=== PATIENT | male | born 1950 | race Caucasian/White ===

== ENCOUNTER → 2016-05-10 | Outpatient (CLI) | payer BC ==
[~2016-05-10] MED LIST: ASPCH81X PO; MULT-506 PO
== END | disposition home or self-care (01) ==
LOC: C.LABBC 08:24
PROVIDERS: ATTEND Family Medicine
DX: E78.5 Hyperlipidemia, unspecified (principal); Z51.81 Encounter for therapeutic drug level monitoring; Z79.899 Other long term (current) drug therapy; Z11.59 Encounter for screening for other viral diseases

== ENCOUNTER → 2016-05-12 | Outpatient (CLI) | payer BC ==
[2016-05-12 10:00] LABS: CHOLESTEROL/HDL RATIO 2.7
== END | disposition home or self-care (01) ==
LOC: C.LAB1850 06:59
PROVIDERS: ATTEND Family Medicine
DX: E78.5 Hyperlipidemia, unspecified (principal); Z11.59 Encounter for screening for other viral diseases; Z51.81 Encounter for therapeutic drug level monitoring; Z79.899 Other long term (current) drug therapy

== ENCOUNTER 2023-09-15 11:48 | Observation (INO) ==
--- NOTE | 2023-09-15 11:54 | History & Physical Report ---
Date of Service September 15, 2023 Assessment & Plan (1) Near syncope: (2) AVB (atrioventricular block): Plan 1. Near syncope: It is now evident that his near syncope is due to transient AV block. There is no reversible cause that we have identified and we will implant a pacemaker. 2. AV block: He has a recent history of first-degree AV block and bifascicular block (so-called trifascicular block) which has a high risk of going on to complete heart block. Recordings have demonstrated transient AV block associated with symptoms. With a 6-second pause and symptoms and no reversible cause he does require a pacemaker. We will attempt to place a left bundle center lead consultant in order to help improve intraventricular conduction. 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 He has always felt that he had a slow heart rate but had been asymptomatic and did not have conduction abnormalities to his knowledge although I do not know when his prior electrocardiogram was. An electrocardiogram in May 07, 2023 showed sinus bradycardia with first-degree AV block and right bundle branch block. On his electrocardiogram September 07, 2023 he had the same findings. With his lightheadedness and conduction abnormalities on electrocardiography we did arrange an event recorder for him to wear. We received an alert about his event recorder on September 11, 2023. He was taking a shower and he felt very lightheadedness and presyncopal and had to sit down, although he did not pass out. He was wearing the monitor at the time (it was scheduled from September 10, 2023 through October 09, 2023) and this showed a period o f complete heart block which lasted for about 10 seconds with several escape beats but a pause of about 6 seconds before his escape rhythm occurred. He is on no medications to cause this. I therefore discussed pacemaker implantation with him but wanted to get an echocardiogram prior to determine the type of device. An echocardiogram done on September 14, 2023 is not formally read as yet but showed a mildly decreased left ventricular ejection fraction but not to the point where we would consider biventricular pacing or ICD implantation. Hopefully with left bundle branch pacing we will be able to improve his conducted complex and perhaps improve his left ventricular function. He arrives today for his pacemaker with no change in his symptoms. I reviewed the indications, procedure, risks and alternatives with the patient and his , and answered all questions. They understands and agree to the procedure. Consent obtained. I also reviewed the risks and use of sedation, they understand and consent obtained. Allergies Allergy/AdvReac Type Severity Reaction Status Date / Time No Known Allergies Allergy Verified 09/15/23 12:25 Home Medications Medication Instructions Recorded Confirmed Type multivitamin 1 tab PO DAILY 03/14/19 09/15/23 History vit C 250 mg-vit E 200 unit-zinc 1 cap PO BID 04/20/23 09/15/23 History ox 12.5 [id number]-zeax capsule (ICaps AREDS2) atorvastatin 10 mg tablet 10 mg PO PM 09/07/23 09/15/23 History Past Med/Surg History Problem List (Updated 09/15/23 @ 13:19 by Fuad Melendez MD) AVB (atrioventricular block) Headache (Acute) First degree heart block (Acute) Dizziness (Acute) New onset atrial fibrillation Elevated troponin Non-ST elevation NE (NSTEMI) (Acute) Near syncope (Acute) Neck pain on left side Conjunctival hemorrhage Near syncope Bifascicular block Sensorineural hearing loss of both ears (Chronic) Abnormal WBC count Overweight (BMI 25.0-29.9) Dyslipidemia Surgical History H/O colonoscopy next 06/12/2024 History of tonsillectomy History of tooth extraction Family History Mother Congestive heart failure Father Diabetes Grandmother (Maternal) Colorectal cancer Sister Ovarian cancer Denies family history of Prostate cancer Myocardial infarction Breast cancer Hypertension Stroke Social History Smoking Status: Never smoker Second Hand Exposure: No; Do You Dip or Chew Tobacco: No; Hx Alcohol Use: Yes Alcohol type: beer Alcohol Intake Frequency: 2-3 x/Week Alcohol Intake Frequency Comment: 1-2 a week Hx Substance Use: No Preferred Language: Spanish Communication Ability: Effective Visual Impairment: Limited Hearing Ability: Normal Index Editor Required: No Beliefs That Will Affect Care: None marital status: Current Living Situation: Spouse current occupational status: retired How many Children do You have: 0 Feels Safe at Home: Yes Childhood Exposure to Second-Hand Smoke: Yes (step dad smoked in the house when he was young) Diet: regular caffeine: Yes (coffee ) Dental Care, Regularly: Yes Physical Activity Frequency: 5-6 Times per Week Physical Activity Frequency Comment: walks daily Seatbelt Use: always Sunscreen Use: Yes Assistive Devices: Glasses Review of Systems Review of Systems: All systems reviewed & are unremarkable except as noted in HPI & below Physical Exam Physical Exam: Constitutional: Alert, cooperative and in no distress. HEENT: Unremarkable Neck: No jugular venous distention, carotid pulses are normal and equal bilaterally without bruits. Pulmonary: Clear to auscultation bilaterally. Cardiac: Regular rhythm with no murmur, gallop or rub. Abdomen: Soft, nontender with normal bowel sounds. Extremities: No edema. Distal pulses intact. Neurologic: No focal findings. Gait is steady. Skin: No rash, ecchymoses or petechiae. PG Care Time/CCT Total # of Minutes Spent Total Time Spent with Patient: Total time spent is greater than 50% in coordination of care (as documented) at patient's floor/unit and/or counseling patient: Coding Level of Care Code None Diagnoses Near syncope R55 AVB (atrioventricular block) I44.30
--- NOTE | 2023-09-15 13:22 | Pre Anesthesia Assessment ---
Date of Service September 15, 2023 Pre Sedation Assessment Vital Signs Temp Pulse Resp BP Pulse Ox O2 Del Method 09/15/23 12:13 37.1 C 53 L 14 145/87 H 97 Room Air Cardiovascular RRR, no murmur, no edema Respiratory normal respiratory effort, lungs clear to auscultation Pre-Sedation Airway Assessment Smoking Status: Never smoker Hx Sleep Apnea: No Short, Thick Neck: No Thyromental Distance: > or= 3.5 Finger Breadths Oral Cavity: + WNL Mallampati Class: II ASA: ASA3 NPO Status Date of Last Intake of Fluids: 09/14/23 Time of Last Intake of Fluids: 22:00 Date of Last Intake of Solid Food: 09/14/23 Time of Last Intake of Solid Foods: 22:00 Procedure Planning Contraindications for Sedation: none Current Medications Reviewed: Yes Notes The planned sedation has been discussed with the patient. Informed Consent was obtained. I have identified the patient, determined the appropriateness of sedation and have assessed the patient immediately prior to the procedure. All medicine(s) and interventions are by my order.
[2023-09-15] MEDS: LIDOCAINE 1% LOCAL 20 ML VIAL ONE (13:45)
[2023-09-15] MEDS: VANCOMYCIN HCL 1000MG/20ML VIAL ONE (13:45)
[2023-09-15] MEDS: ceFAZolin 330 MG/ML 1 GM VIAL ONE (13:46)
[2023-09-15] MEDS: WATER, STERILE FOR INJ 10 ML VIAL ONE (13:46)
[2023-09-15] MEDS: fentaNYL citrate PF 100 MCG/2 ML VIAL ONE ×2 (15:21→15:22)
[2023-09-15] MEDS: MIDAZOLAM HCL 5 MG/ML 1 ML VIAL ONE (15:21)
[2023-09-15] MEDS: MIDAZOLAM HCL 1 MG/ML 2ML VIAL ONE (15:22)
[2023-09-15] MEDS ORDERED: ACETAMINOPHEN W/CODEINE #3 1 TAB PO PRN (15:28)
--- NOTE | 2023-09-15 15:28 | Electrophysiology Report ---
Date of Service September 15, 2023 Electrophysiology Procedure Electrophysiology Procedure Report Preoperative diagnosis: Intermittent complete heart block Postoperative diagnosis: Same Procedure: Dual-chamber pacemaker implantation Surgeon: Fuad Melendez MD Estimated blood loss: 20 cc Specimens: None Anesthesia: Local with sedation Procedure details: After obtaining informed consent for the procedure, the patient was brought to the laboratory and prepped and draped in the standard sterile manner. The left prepectoral region was anesthetized with 1% lidocaine local anesthetic and left axillary venipuncture was performed by percutaneous technique and a guidewire placed through the left subclavian vein into the superior vena cava. The area was further infiltrated with 1% lidocaine local anesthetic and a 5 cm incision was made parallel to the left clavicle and 2 cm below it and carried down to the anterior pectoralis fascia. A pacemaker pocket was formed by blunt dissection anterior to the pectoralis fascia and a vancomycin soaked sponge was placed in the pocket. An 8 [place] Med[employer]onic lead introducer was placed over the guidewire into the left subclavian vein, the dilator and guidewire were removed and a bipolar active fixation steroid tipped lead was advanced through the introducer into the superior vena cava. A guidewire was placed through the introducer and the introducer was stripped from the lead and guidewire. This lead was temporarily placed in the right ventricle for backup pacing as attempts were made to place a left bundle branch pacing lead. A 7 [place] Medtronic lead introducer was placed over the guidewire into the left subclavian vein, the dilator and several different left bundle guides were placed through the sheath with attempts to place a left bundle branch pacing lead. We were unable to adequately obtain fixation and good pacing thresholds in appropriate locations. Ultimately after number of attempts this was discontinued and this sheath system was removed. A bipolar active fixation steroid tipped atrial lead was advanced through the introducer into the superior vena cava. The introducer was stripped from the lead and guidewire. Using a curved stylette the ventricular backup pacing lead was repositioned by retracting the screw and advanced through the right ventricular outflow tract into the pulmonary artery and then using a straight stylette was positioned in the right ventricular apex. The right ventricular morphology was little bit unusual and seemed very rotated. Several locations were tested. And final position the screw was extended fixing the lead in position. Pacing and sensing thresholds were evaluated in bipolar configuration and are recorded on the implant data sheet. Using a curved stylette the atrial lead was positioned in the region of the atrial appendage and the screw extended fixing the lead in position. Pacing and sensing thresholds were evaluated in bipolar configuration and are recorded on the implant data sheet. Once the leads were in position they were attached to the anterior pectoralis fascia using 2 sutures of 2-0 silk around each lead collar. The vancomycin soaked sponge was removed from the pocket, hemostasis was obtained, the pacemaker was attached to the leads and placed in the pocket with the leads coiled beneath it. The incision was closed with a running double subcutaneous closure of 3-0 Vicryl absorbable suture, followed by running subcuticular skin closure of 4-0 Vicryl absorbable suture. Bacitracin ointment was placed on the incision and a dressing applied. [facility] [place] codes Indication for Procedure (1) AVB (atrioventricular block): Pacing Procedure 1: Pacin Insert/Replace Pacer A & V
[2023-09-15 18:27] VITALS: RESP 18
[2023-09-15] MEDS: ATORVASTATIN 10 MG TAB PO SCH (20:08)
[2023-09-15] MEDS ORDERED: VIT C E ZINC OX COPP LUT ZEAX PO SCH (21:00)
[2023-09-15] MEDS: ACETAMINOPHEN 325 MG TAB PO PRN (22:51)
--- NOTE | 2023-09-16 08:07 | XRay Report ---
XR chest 2V PA/lateral CLINICAL HISTORY: EXACT TIME ORDERED Evaluate for pneumothorax and l TECHNIQUE: 2 views of the chest were obtained. Comparison: Comparison is made to chest radiograph 09/12/2023 FINDINGS: Interval placement of a pacemaker with the leads in satisfactory position. The cardiomediastinal silh ouette is normal. The lungs are clear. No evidence of pleural effusion or pneumothorax. IMPRESSION: Interval placement of a pacemaker with the leads in satisfactory position. No evidence of pneumothora x. ACT 112: Negative or not required by law. Electronically signed by: Jd Xiao M.D. 09/16/2023 8:04 AM
--- NOTE | 2023-09-16 08:12 | Post Anesthesia Assessment ---
Date of Service September 16, 2023 Post Sedation Assessment Vital Signs Temp Pulse Pulse Resp BP BP Pulse Ox 09/16/23 07:28 36.8 C 63 18 137/88 94 09/16/23 03:32 36.5 C 58 L 18 127/77 96 09/15/23 23:13 64 09/15/23 22:52 37.0 C 58 L 18 136/90 96 09/15/23 19:03 36.9 C 77 18 118/84 93 09/15/23 18:26 36.8 C 83 18 123/85 93 09/15/23 16:55 36.8 C 60 20 167/94 H 96 09/15/23 16:20 67 16 145/94 H 97 09/15/23 16:05 69 16 138/88 97 09/15/23 15:50 58 L 16 147/94 H 98 09/15/23 15:35 66 16 147/88 H 97 09/15/23 12:13 37.1 C 53 L 14 145/87 H 97 O2 Del Method 09/16/23 07:28 Room Air 09/16/23 03:32 Room Air 09/15/23 23:13 09/15/23 22:52 Room Air 09/15/23 19:03 Room Air 09/15/23 18:26 Room Air 09/15/23 16:55 Room Air 09/15/23 16:20 Room Air 09/15/23 16:05 Room Air 09/15/23 15:50 Room Air 09/15/23 15:35 Room Air 09/15/23 12:13 Room Air Recovery Score Activity: Moves 4 extremities Respiration: Deep Breath/Cough Circulation: +/-20% PreAnes Value Consciousness: Fully Awake Oxygen Saturation: > 92% On Room Air Post Anesthesia Score: 10 Discharge Sedation Level of Care: Fast Track Phase II Post Sedation Plan On clinical assessment, the patient appears to have tolerated the sedation without complications. Patient is recovering as anticipated. Patient will continue to be monitored by nursing and may be discharged when sedation discharge criteria are met per below protocol. Upon Completions of procedure up to 15 minutes continue every 5 minute vital signs and the P.A.R. score; then discharge to a Phase I or Fast Track to Phase II per the following guidelines: * Discharge Patient to appropriate Phase II area if PAR is 8 or greater or return to pre- procedure baseline. The post - procedure orders will be as directed. * If PAR score is less than 8 or not return to pre-procedure baseline then patient will follow Phase I monitoring till PAR is reached for Phase II. The Phase I may be done in procedure room or may call to secure a Phase I area. * If naloxone or flumazenil are used for reversal, hold in Phase I for cont inued monitoring from when last reversal dose was given for a minimum of 60 minutes or longer pending the nurse and/or physician discretion of patient condition before discharge to Phase II. Please call the Sedation Physician to re-evaluate and complete post-note for discharge to Phase II area. Do NOT discharge from procedure sedation or Phase 1 until post- sedation evaluation note is complete by procedure /sedation MD Sedation Discharge Instructions to be given to the patient at discharge to home.
[2023-09-16] MEDS: MULTIVITAMIN TAB PO SCH (09:01)
[2023-09-16 12:05] VITALS: BP 124/86; PULSE 76; TEMP 97.9; O2SAT 95
--- NOTE | 2023-09-16 21:54 | Electrocardiogram Report ---
Test Reason : Blood Pressure : / mmHG Vent. Rate : 050 BPM Atrial Rate : 050 BPM P-R Int : 270 ms QRS Dur : 148 ms QT Int : 452 ms P-R-T Axes : 014 -71 081 degrees QTc Int : 412 ms Poor data quality, interpretation may be adversely affected Atrial-paced rhythm with prolonged AV conduction Right bundle branch block Left anterior fascicular block Bifascicular block Abnormal ECG When compared with ECG of 12-SEP-2023 08:09, Electronic atrial pacemaker has replaced Sinus rhythm Confirmed by Ben Linares ([id number]) on 09/16/2023 9:54:43 PM Referred By: Fuad Melendez Confirmed By:Ben Linares
== END 2023-09-16 12:47 | disposition home or self-care (01) ==
LOC: EP 11:48 → 2S 15:02 → INTOOBSV 15:02 → 2S 16:51